=== PATIENT | female | born 1985 | race Caucasian/White ===

== ENCOUNTER → 2017-02-04 | Day surgery (SDC) | payer OTHER ==
[~2017-02-04] MED LIST: PROTONIX PO; ZOLOFT100 MG PO
--- NOTE | ~2017-02-04 | OR ---
Unit #: [id number] #: [id number] Patient: JARED MONAE [id number] [address] [place], [place] [address] [id number] MR#: [id number] NAME: JARED MONAE ROOM: Date of Procedure: 02/04/2017 Admission Date: 02/04/2017 Surgeon: Washington Rebollar M.D. : 1985 Attending Physician: Washington Rebollar M.D. OPERATIVE REPORT PROCEDURE PERFORMED Colonoscopy to cecum. INDICATIONS FOR PROCEDURE A 31-year-old with left upper quadrant pain, recurrent blood in the stool, undergoing evaluation with an upper endoscopy and colonoscopy. MEDICATIONS Monitored anesthesia. POSTOPERATIVE FINDINGS 1. Normal esophagus. 2. Mild chronic appearing gastritis. 3. Multiple small gastric polyps. Biopsies taken. 4. Normal duodenum and distal duodenum. 5. Normal colon mucosa all the way to terminal ileum. 6. Internal hemorrhoids most likely the cause of bleeding. PLAN Follow up on pathology report. Continue pantoprazole for now. DESCRIPTION OF PROCEDURE The patient was explained of the procedure, risks, and benefits along with the risks and benefits of anesthesia. She was brought to the endoscopy room. Propofol anesthesia was given. Bite block was placed. The scope was passed down the mouth into the esophagus, stomach, duodenum, and distal duodenum. Findings as described. Biopsies were taken. Gently, I pulled the scope out of the patient's mouth. She tolerated it well. At this time, she was turned around and repositioned for colonoscopy. Rectal exam was done, which was normal. Colonoscope was lubricated, passed up the rectum, advanced under direct vision all the way to the cecum. Terminal ileum was intubated shows normal mucosa. Colonic mucosa was normal throughout. No polyps, masses, or colitis. I retroflexed in the rectum, small hemorrhoids were seen. The scope was gently pulled out. She tolerated it well. Dictated by... Washington Rebollar M.D. Unit #: [id number] #: [id number] Patient: JARED MONAE KB/kirsten TD: 02/05/2017 08:30 JOB #: [id number] OPERATIVE REPORT Page 1 of 1 X Washington Rebollar MD PROCEDURE OPERATIVE NOTE
== END | disposition home or self-care (01) ==
LOC: COPS 08:49
DX: K29.50 Unspecified chronic gastritis without bleeding (principal); K64.8 Other hemorrhoids; K21.9 Gastro-esophageal reflux disease without esophagitis; Z88.8 Allergy status to other drugs, medicaments and biological substances; Z79.899 Other long term (current) drug therapy
CPT/HCPCS: 88305; 88312; J2250